=== PATIENT | female | born 2000 | race Caucasian/White ===

== ENCOUNTER 2018-03-15 10:58 | Emergency (ER) | payer OTHER ==
[2018-03-15] MEDS ORDERED: Albuterol/Ipratropium NEB.SOL* Albuterol 2.5 MG/Ipratropium 0.5 MG 3 ML INH ONE (11:39)
[2018-03-15 12:38] VITALS: BP 126/60
--- NOTE | 2018-03-15 18:31 | ED ---
Respiratory - HPI Summary HPI Summary: Pt is a 17 y.o female who presents to the ER for re-evaluation of cough and fever x several days. Pt. is a student at [employer] and was seen by health center yesterday where she states she had a CXR, labs and flu test. Pt. states labs and flu were negative but cxr shows possible pneumonia and she was placed on doxy and given inhaler. Pt. states her fever increased today and she felt SOB and presents to the ER. Pt. states she used inhaler last night but not today. Fever has been controlled with tylenol or motrin. She has no past medical hx. Immunizations are up to date. Otherwise denies N/V/D, urinary sxs. Numerous sick contacts. Sxs are mild in severity. No current modifying factors. - History of Current Complaint Chief Complaint: EDFluSymptoms Stated Complaint: FEVER/COUGH/ACHES Time Seen by Provider: 03/15/18 11:11 Hx Obtained From: Patient Pain Intensity: 0 - Allergy/Home Medications Allergies/Adverse Reactions: Allergies Allergy/AdvReac Type Severity Reaction Status Date / Time cefdinir [From Omnicef] Allergy Nausea And Verified 03/15/18 11:03 Vomiting Penicillins Allergy Hives Verified 03/15/18 11:03 Sulfa (Sulfonamide Allergy Hives Verified 03/15/18 11:03 Antibiotics) PMH/Surg Hx/FS Hx/Imm Hx Previously Healthy: Yes Infectious Disease History: No Infectious Disease History: Denies: Traveled Outside the [place] in Last 30 Days - Family History Known Family History: Positive: Non-Contributory - Social History Occupation: Student Lives: Dormitory/Roommates Alcohol Use: Occasionally Substance Use Type: Reports: None Smoking Status (MU): Never Smoked Tobacco Review of Systems Positive: Fever, Chills Eyes: Negative ENT: Negative Cardiovascular: Negative Positive: Shortness Of Breath, Cough Gastrointestinal: Negative Genitourinary: Negative Skin: Negative Neurological: Negative All Other Systems Reviewed And Are Negative: Yes Physical Exam Triage Information Reviewed: Yes Vital Signs On Initial Exam: Initial Vitals Temp Pulse Resp BP Pulse Ox 97.1 F 107 16 130/75 96 03/15/18 11:00 03/15/18 11:00 03/15/18 11:00 03/15/18 11:00 03/15/18 11:00 Vital Signs Reviewed: Yes Appearance: Positive: Well-Appearing - Pt. sitting up in bed in NAD. Talking with friends. Very well appearing Skin: Positive: Warm, Dry Head/Face: Positive: Normal Head/Face Inspection Eyes: Positive: Normal, EOMI, JAIME ENT: Positive: Pharynx normal, TMs normal Neck: Positive: Supple, Other: - No nuchal rigidity Respiratory/Lung Sounds: Positive: Other - Mild wheeze/rhonchi throughout. No accessory muscle use, stridor, or retractions. Breathing comfortably on RA. Cardiovascular: Positive: Normal, RRR Neurological: Positive: Normal, CN Intact II-III Psychiatric: Positive: Affect/Mood Appropriate Diagnostics - Vital Signs Vital Signs Temp Pulse Resp BP Pulse Ox 03/15/18 12:53 99 F 91 21 126/60 100 03/15/18 12:28 112 97 03/15/18 12:26 119 126/60 98 03/15/18 12:08 100 12 03/15/18 11:00 97.1 F 107 16 130/75 96 - Laboratory Lab Statement: Any lab studies that have been ordered have been reviewed, and results considered in the medical decision making process. Disposition - Course Course Of Treatment: Pt. presenting with cough and reported fever. She is afebrile in ED. O2 saturation is 96% on RA, VS otherwise normal. Overall pt. is very well appearing. She has mild wheezing on exam. Do not see the need to repeat any test today. Pt. given duoneb and is feels better after. Lungs are clearer and O2 improved to 100%. Will have pt. continue doxy, add prednisone x 5 days, and have her use inhaler 2 puffs every 4-6 hours. TO increase fluids. Tylenol or motrin for fever as directed. To f.u with [place] or return to ER if sxs change or worsen. Pt. understands and agrees with plan. - Differential Dx - Cardiopulmonary Differential Diagnoses - Cardiopulmonary: Asthma, Bronchitis, Influenza, Lower Resp Infection - Diagnoses Provider Diagnoses: Bronchitis, Bronchospasm with bronchitis, acute Discharge - Sign-Out/Discharge Documenting (check all that apply): Patient Departure - Discharge Plan Condition: Improved Disposition: HOME Prescriptions: predniSONE TAB* [Deltasone 20 MG TAB*] 40 mg PO DAILY #10 tab Patient Education Materials: Acute Bronchitis (ED), Bronchospasm (ED) Forms: *School Release Referrals: [facility] [Primary Care Provider] - Additional Instructions: Schedule a follow up appointment with health clinic Continue doxycycline as directed Use inhaler 2 puffs every 4-6 hours Take prednisone as directed Tylenol or motrin for pain and fever as directed Return to ER if symptoms change or worsen - Billing Disposition and Condition Condition: IMPROVED Disposition: Home
== END 2018-03-15 12:53 | disposition home or self-care (01) ==
LOC: ED 10:58
DX: J20.9 Acute bronchitis, unspecified (principal); Z88.1 Allergy status to other antibiotic agents; Z88.0 Allergy status to penicillin; Z88.2 Allergy status to sulfonamides
CPT/HCPCS: 99282; A9270-GY